=== PATIENT | male | born 1970 | race Caucasian/White ===

== ENCOUNTER 2016-08-20 16:15 | Emergency (ER) | payer SELFPAY ==
--- NOTE | 2016-08-20 17:34 | RAD ---
THREE VIEWS LEFT SHOULDER: History: Pain x 4 months. Comparison: None. FINDINGS: Glenohumeral joint space is preserved. No fracture. No dislocation. IMPRESSION: No fracture or dislocation. POS: MODE
== END 2016-08-20 19:05 | disposition home or self-care (01) ==
LOC: MADERS 16:15
DX: S46.912A Strain of unspecified muscle, fascia and tendon at shoulder and upper arm level, left arm, initial encounter (principal); F17.210 Nicotine dependence, cigarettes, uncomplicated; X58.XXXA Exposure to other specified factors, initial encounter